=== PATIENT | female | born 1990 | race Caucasian/White ===

== ENCOUNTER 2022-08-23 13:00 | Emergency (ER) | payer BC, OTHER ==
[~2022-08-23] VITALS: Ht 167.6 cm; Wt 63.5 kg
[~2022-08-23 13:00] MED LIST: FLONASE; TRISPRINTEC
[2022-08-23 13:05] VITALS: BP_SYST 132
[2022-08-23] MEDS ORDERED: METHYLPREDNISOLONE SOD SUCC 40 MG/ML VIAL INJ ONE (18:15)
[2022-08-23] MEDS ORDERED: KETOROLAC TROMETHAMINE 60 MG/2 ML VIAL IM ONE (18:15)
[2022-08-23 20:32] VITALS: BP_SYST 120
[2022-08-23] MEDS ORDERED: OXYC-128 PO (21:58)
[2022-08-23] MEDS ORDERED: PRED20TA PO (21:58)
== END 2022-08-23 20:32 | disposition home or self-care (01) ==
LOC: SED 13:00
DX: M54.50 Low back pain, unspecified (principal); M54.32 Sciatica, left side; M79.662 Pain in left lower leg; R20.0 Anesthesia of skin; Z79.899 Other long term (current) drug therapy
CPT/HCPCS: 99284; 96372; J1885; J1030